=== PATIENT | female | born 1995 | race Caucasian/White ===

== ENCOUNTER 2016-12-04 23:54 | Emergency (ER) | payer BC, OTHER ==
[2016-12-05 00:05] VITALS: BP 128/79; BMI 24.8
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
[2016-12-05] MEDS ORDERED: NORFLEX INJ IM ONE ×2 (01:33→01:35)
[2016-12-05] MEDS ORDERED: TORADOL 60 MG VIAL IM ONE (01:33)
[2016-12-05] MEDS ORDERED: TORADOL 60 MG VIAL ONE (01:39)
[2016-12-05] MEDS ORDERED: NORFLEX INJ ONE (01:39)
--- NOTE | 2016-12-05 02:10 | CT ---
EXAM: CT BRAIN WITHOUT CONTRAST INDICATION: Headache COMPARISION: No Priors TECHNIQUE: Routine axial CT of the brain was performed without intravenous contrast. FINDINGS: The cerebral and cerebellar cortex are normal. The ventricular system is nondilated. No intra or ext ra-axial mass or hemorrhage. The young-white junction is preserved. There is no evidence of subacute ischemic change. The basilar cisterns are clear. The skull is intact. The mastoid air cells are clear. IMPRESSION: Normal brain CT examination Reported By:
--- NOTE | 2016-12-05 02:11 | CT ---
EXAM: CT FACE WITHOUT CONTRAST INDICATION: Jaw pain COMPARISION: No priors for comparison TECHNIQUE: Axial CT of the orbits and face were obtained without intravenous contrast. Sagittal and coronal rec onstructions were obtained using the axial data. FINDINGS: There is no evidence of a fracture or destructive intraosseous lesion. The orbits and intraorbital s oft tissues are normal and symmetric. The facial soft tissues are normal. There is no evidence of a foreign body. The paranasal sinuses are clear. IMPRESSION: Normal CT examination of the face. Reported By:
== END 2016-12-05 02:55 | disposition home or self-care (01) ==
LOC: ER 23:54
DX: S00.83XA Contusion of other part of head, initial encounter (principal); Y04.0XXA Assault by unarmed brawl or fight, initial encounter; Y92.89 Other specified places as the place of occurrence of the external cause; R51 Headache
CPT/HCPCS: 70450; 70486; 96372; 99282; J1885; J2360

== ENCOUNTER 2019-05-27 03:24 | Inpatient (IN) ==
[2019-05-27 03:51] VITALS: BMI 30.2
[2019-05-27 03:54] LABS: AMNISURE ROM TEST THERE IS A RUPTURE (NO RUPTURE)
[2019-05-27 04:34] LABS: BASOPHILS # (AUTO) 0.1 X10^3/uL (0.0-0.1); BASOPHILS % (AUTO) 0.8 % (0.2-1.0); EOSINOPHILS # (AUTO) 0.1 x10^3/uL (0.0-0.2); EOSINOPHILS % (AUTO) 0.8 % (0.9-2.9); HEMATOCRIT 29.7 % (36.0-47.0); HEMOGLOBIN 9.9 g/dL (12.0-16.0); LYMPHOCYTES % (AUTO) 24.5 % (21.0-51.0); MEAN CORPUSCULAR HEMOGLOBIN 25.7 pg (27.0-34.0); MEAN CORPUSCULAR HGB CONC 33.4 g/dL (33.0-35.0); MEAN PLATELET VOLUME 9.5 fL (7.4-11.0); MONOCYTES % (AUTO) 11.8 % (0.0-13.0); NEUTROPHILS # (AUTO) 5.1 x10^3/uL (2.2-4.8); NEUTROPHILS % (AUTO) 62.1 % (42.0-75.0); PLATELET COUNT 214 X10^3/uL (150.0-450.0); RED BLOOD COUNT 3.86 X10^6/uL (3.5-5.4); RED CELL DISTRIBUTION WIDTH 14.8 % (11.6-16.5); WHITE BLOOD COUNT 8.2 X10^3/uL (3.6-10.0)
[2019-05-27] MEDS ORDERED: D5 1/2 NS 1000 ML 1,000 ML IV ONE ×2 (04:34→04:36)
[2019-05-27 04:36] LABS: BLOOD UREA NITROGEN 9 mg/dL (7-18); CARBON DIOXIDE 22.8 mmol/L (21-32); CHLORIDE 104 mmol/L (98-107); CREATININE 0.61 mg/dL (0.55-1.02); SODIUM 136 mmol/L (136-145); eGFR NON BLACK RACES > 60 (>60)
[2019-05-27 04:50] LABS: PLATELET MORPHOLOGY COMMENT NORMAL (NORMAL)
[2019-05-27] MEDS ORDERED: REGLAN INJ 10 MG VIAL IVP PRN (04:51)
[2019-05-27] MEDS ORDERED: PITOCIN IVP ONE (04:51)
[2019-05-27] MEDS ORDERED: NUBAIN INJ 200 MG VIAL MULTIDOSE IVP PRN (04:51)
[2019-05-27] MEDS ORDERED: D5LR 1L W PITOCIN 10 UNITS/L 10 UNITS/1,000 ML BAG IV PRN (04:51)
[2019-05-27] MEDS ORDERED: PHENERGAN INJ 25 MG IM PRN ×2 (04:51→07:06)
[2019-05-27] MEDS ORDERED: LR 1000 ML IV 1,000 ML IV ONE (04:58)
[2019-05-27] MEDS ORDERED: FENTANYL INJ 100 mcg ONE (04:59)
[2019-05-27] MEDS ORDERED: D5 1/2 NS 1L W PITOCIN 20 UNITS/L 20 UNITS/1,000 ML BAG IV ONE (04:59)
[2019-05-27] MEDS ORDERED: NAROPIN EPIDURAL 0.2% + FENTANYL 90MCG 60 ML EPI ONE (04:59)
[2019-05-27] MEDS ORDERED: D5 1/2 NS 1000 ML 1,000 ML IV SCH (05:00)
[2019-05-27] MEDS: D5 1/2 NS 1000 ML 1,000 ML with PITOCIN 20 UNITS IV SCH ×2 (06:53)
[2019-05-27] MEDS ORDERED: MOTRIN TAB 800 MG PO PRN (07:06)
--- NOTE | 2019-05-27 07:06 | DR.OB ---
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 Head delivered over intact perineum. No nuchal cord. Nose and mouth bulb suctioned. Body delivered over intact perineum. Cord clamped x 2 and cut. Cord sent for gases. Placenta delivered sp ontaneously / intact / 3 vessel cord. No CVX / vaginal / perineal tears. Viable female , VTX/OA, wt=6'13" and 9/9, stable to NBN. Mother stable to RR. QTR=[id number].
[2019-05-27] MEDS ORDERED: DERMOPLAST SPRAY TOP PRN (08:21)
[2019-05-27] MEDS ORDERED: ADACEL or BOOSTRIX TDaP VACCINE IM ONE (08:21)
[2019-05-27] MEDS ORDERED: AMBIEN PO PRN (08:21)
[2019-05-27] MEDS ORDERED: MILK OF MAGNESIA PO PRN (08:21)
[2019-05-27] MEDS: PRENATAL PLUS PO SCH (14:53)
[2019-05-28] MEDS: D5 1/2 NS 1000 ML 1,000 ML with PITOCIN 20 UNITS IV SCH ×2 (04:38)
[2019-05-28 04:49] LABS: HEMATOCRIT 27.5 % (36.0-47.0); HEMOGLOBIN 9.2 g/dL (12.0-16.0)
[2019-05-28] MEDS: PRENATAL PLUS PO SCH (08:30)
[2019-05-28 09:36] VITALS: BP 122/84
== END 2019-05-28 11:50 | disposition home or self-care (01) | DRG 807 ==
LOC: ER 03:26 → LD 04:47 → MED/SURG 08:32
PROVIDERS: ADMIT Specialist; ATTEND Specialist
DX: Z3A.38 38 weeks gestation of pregnancy; O99.613 Diseases of the digestive system complicating pregnancy, third trimester; Z37.0 Single live birth
CPT/HCPCS: 36415; 80048; 84112; 85014; 85018; 85025; 86592; 86850; 86900; 86901; 96365; 99284; A4216; A4222; J2590; J3010; J7120; S0197; S5010

== ENCOUNTER 2022-05-01 06:30 | Inpatient (IN) ==
[2022-05-01] MEDS ORDERED: STADOL INJ IVP PRN (06:35)
[2022-05-01] MEDS ORDERED: D5 1/2 NS 1,000 ML 1,000 ML IV ONE (06:35)
--- NOTE | 2022-05-01 07:28 | DR.OB ---
OB Quick Note - Assessment/Plan Assessment/Plan: L&D 05/01/22 at 7:05am S-No complaint. O-Afebrile,VSS PHS=755 with good LTV, +accel, no decel. CTX=occasional, mild CVX=2-3cm/75%/-1/VTX AROM with clear fluid. IUPC and FSE placed. A-IUP at 39 1/7 weeks for induction P-Begin pitocin induction Anticipate
[2022-05-01] MEDS ORDERED: REGLAN INJ 10 MG VIAL IVP PRN (07:35)
[2022-05-01] MEDS ORDERED: D5 LR + PITOCIN 10 UNITS/L 10 UNITS/1,000 ML BAG IV PRN (07:35)
[2022-05-01] MEDS ORDERED: PHENERGAN INJ 25 MG IM PRN ×2 (07:35→11:10)
[2022-05-01] MEDS ORDERED: MORPHINE SULFATE INJ 2 MG INJ IVP PRN (07:35)
[2022-05-01] MEDS ORDERED: D5 1/2 NS 1,000 ML 1,000 ML IV SCH (07:35)
[2022-05-01] MEDS ORDERED: NUBAIN INJ 20 MG AMP IVP PRN (07:35)
[2022-05-01] MEDS ORDERED: PITOCIN IVP ONE (07:35)
[2022-05-01] MEDS ORDERED: BETADINE SOLN ONE (07:40)
[2022-05-01] MEDS ORDERED: D5 1/2 NS 1,000 mL + PITOCIN 20 UNITS/L IV 20 UNITS/1,000 ML BAG IV ONE (07:40)
[2022-05-01] MEDS ORDERED: STADOL INJ ONE (09:20)
[2022-05-01] MEDS ORDERED: MOTRIN TAB 800 MG PO PRN (11:10)
[2022-05-01] MEDS ORDERED: HEMABATE IM ONE ×2 (11:55→12:00)
[2022-05-01] MEDS: D5 1/2 NS 1,000 ML 1,000 ML with PITOCIN 20 UNITS IV SCH ×4 (12:00→22:11)
[2022-05-01] MEDS ORDERED: ADACEL or BOOSTRIX TDaP VACCINE IM ONE (12:34)
[2022-05-01] MEDS ORDERED: MILK OF MAGNESIA PO PRN (12:34)
[2022-05-01] MEDS ORDERED: DERMOPLAST PAIN RELIEF SPRAY TOP PRN (12:34)
[2022-05-01] MEDS ORDERED: AMBIEN PO PRN (12:34)
--- NOTE | 2022-05-01 16:29 | DR.OB ---
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 Head delivered over intact perineum. No nuchal cord. Nose and mouth bulb suctioned. Body delivered over intact perineum. Cord clamped x 2 and cut. handed to attendant. Cord sent for gases. Placenta delivered spontaneously / intact / 3 vessel cord. No CVX / vaginal / perineal tears. Viable female infant delivered by , VTX/OA, wt.=7'5" and 9/9, stable to NBN. Mother stable to RR. IOO=070mu.
[2022-05-02 04:27] VITALS: BP 122/61
[2022-05-02] MEDS: D5 1/2 NS 1,000 ML 1,000 ML with PITOCIN 20 UNITS IV SCH ×2 (04:58)
[2022-05-02 05:12] LABS: HEMATOCRIT 31.2 % (36.0-47.0); HEMOGLOBIN 10.4 g/dL (12.0-16.0)
[2022-05-02] MEDS ORDERED: PRENATAL PLUS PO SCH (09:00)
== END 2022-05-02 12:00 | disposition home or self-care (01) | DRG 807 ==
LOC: LD 06:30 → MED/SURG 14:06
PROVIDERS: ADMIT Specialist; ATTEND Specialist
DX: Z37.0 Single live birth; Z01.812 Encounter for preprocedural laboratory examination; O99.613 Diseases of the digestive system complicating pregnancy, third trimester; Z01.818 Encounter for other preprocedural examination; Z01.810 Encounter for preprocedural cardiovascular examination; Z3A.39 39 weeks gestation of pregnancy; K21.9 Gastro-esophageal reflux disease without esophagitis